=== PATIENT | male | born 1985 | race Caucasian/White ===

== ENCOUNTER 2018-07-25 16:26 | Emergency (ER) | payer BC ==
[~2018-07-25] VITALS: Ht 175.3 cm; Wt 85.8 kg
--- OUTSIDE RECORDS SUMMARY | 2018-07-25 16:29 | XMS REPORT | Continuity of Care Document ---
Author Author [facility] Interface Address Unknown Phone Unavailable Problems Problem Status Onset Date Classification Date Reported Comments Source Body mass index 25-29 - overweight 06/28/2018 Diagnosis 06/28/2018 [facility] Elevated blood-pressure reading without diagnosis of hypertension 06/28/2018 Diagnosis 06/28/2018 [facility] Immunization due 06/28/2018 Diagnosis 06/28/2018 [facility] Exposure to Influenzavirus 06/28/2018 Diagnosis 06/28/2018 [facility] Medications Medication Details Route Status Patient Instructions Ordering Provider Order Date Source Lidocaine Hydrochloride 20 MG/ML Mucous Membrane Topical Solution Lidocaine Viscous 2 % mucosal solution Take 15 mL every 3 hours by oral route. Swish gargle & spit. Active [facility] Oseltamivir 75 MG Oral Capsule [Tamiflu] Tamiflu 75 mg capsule Take 1 capsule twice a day by oral route for 5 days. Active [facility] benzonatate 100 MG Oral Capsule [Tessalon Perles] Tessalon Perles 100 mg capsule Take 1 capsule 3 times a day by oral route for 7 days. Active [facility] Allergies, Adverse Reactions, Alerts Substance Category Reaction Severity Reaction type Status Date Reported Comments Source Immunizations Immunization Date Given Site Status Last Updated Comments Source Tdap 03/27/2017 completed [facility] Results Order Name Results Value Reference Range Date Interpretation Comments Source Vital Signs Vital Sign Value Date Comments Source Diastolic (mm Hg) 84 06/27/2018 [facility] Height 70 06/27/2018 [facility] Systolic (mm Hg) 138 06/27/2018 [facility] Weight 175 06/27/2018 [facility] Encounters Location Location Details Encounter Type Encounter Number Reason For Visit Attending Provider ADM Date DC Date Status Source [place] - [facility] - [id number] David-C: [address] [place] [address], Ph. [id number] Chadd Loo 06/27/2018 [facility] Procedures Procedure Code Date Perfomer Comments Source
--- OUTSIDE RECORDS SUMMARY | 2018-07-25 16:29 | XMS REPORT | Encounter Summary ---
Author Organization Unknown Address [address] [place] [address] Phone [phone] Reason for Visit Medical Complaint Instructions 1. Exposure to Influenzavirus rapid flu (A+B) Tamiflu 75 mg capsule Tessalon Perles 100 mg capsule Lidocaine Viscous 2 % mucosal solution influenza (flu): care instructions 2. Immunization due 3. Elevated blood-pressure reading without diagnosis of hypertension elevated blood pressure: care instructions 4. Body mass index 25-29 - overweight learning about healthy weight Discussion Note Take charge of your health handout given and discussed. SE of medictions discussed and pt verbalized understanding. Plan of Care Patient Instructions How can you care for yourself at home? Get plenty of rest. Drink plenty of fluids, enough so that your urine is light yellow or clear like water. If you have kidney, heart, or liver disease and have to limit fluids, talk with your doctor before you increase the amount of fluids you drink. Take an owvl-tmo-mxzaanx pain medicine if needed, such as acetaminophen (Tylenol), ibuprofen (Advil, Motrin), or naproxen (Aleve), to relieve fever, headache, and muscle aches. Read and follow all instructions on the label. No one younger than 20 should take aspirin. It has been linked to Arielle syndrome, a serious illness. Do not smoke. Smoking can make the flu worse. If you need help quitting, talk to your doctor about stop-smoking programs and medicines. These can increase your chances of quitting for good. Breathe moist air from a hot shower or from a sink filled with hot water to help clear a stuffy nose. Before you use cough and cold medicines, check the label. These medicines may not be safe for young children or for people with certain health problems. If the skin around your nose and lips becomes sore, put some petroleum jelly on the area. To ease coughing: Drink fluids to soothe a scratchy throat. Suck on cough drops or plain hard candy. Take an qmpl-qaf-qywsjqf cough medicine that contains dextromethorphan to help you get some sleep. Read and follow all instructions on the label. Raise your head at night with an extra pillow. This may help you rest if coughing keeps you awake. Take any prescribed medicine exactly as directed. Call your doctor if you think you are having a problem with your medicine. To avoid spreading the flu Wash your hands regularly, and keep your hands away from your face. Stay home from school, work, and other public places until you are feeling better and your fever has been gone for at least 24 hours. The fever needs to have gone away on its own without the help of medicine. Ask people living with you to talk to their doctors about preventing the flu. They may get antiviral medicine to keep from getting the flu from you. To prevent the flu in the future, get a flu vaccine every fall. Encourage people living with you to get the vaccine. Cover your mouth when you cough or sneeze. When should you call for help? Call 911 anytime you think you may need emergency care. For example, call if: You have severe trouble breathing. Call your doctor now or seek immediate medical care if: You have new or worse trouble breathing. You seem to be getting much sicker. You feel very sleepy or confused. You have a new or higher fever. You get a new rash. Watch closely for changes in your health, and be sure to contact your doctor if: You begin to get better and then get worse. You are not getting better after 1 week. Reminders Provider Appointments None recorded. Lab Rapid Flu (A+B) 06/27/2018 [facility] Referral None recorded. Procedures None recorded. Surgeries None recorded. Imaging None recorded. Medications Name Start Date Lidocaine Viscous 2 % mucosal solution Take 15 mL every 3 hours by oral route. Swish gargle & spit. Tamiflu 75 mg capsule Take 1 capsule twice a day by oral route for 5 days. Tessalon Perles 100 mg capsule Take 1 capsule 3 times a day by oral route for 7 days. Medications Administered None recorded. Vitals Height Weight BMI Blood Pressure 5 ft 10 in 175 lbs 25.1 kg/m2 (1) 160/100 mm[Hg] (2) 138/84 mm[Hg] Lab Results None recorded. Allergies Code Code System Name Reaction Severity Status Onset NKDA Problems No Known Problems Procedures None recorded. Vaccine List Vaccine Type Tdap 03/27/2017 Social History Smoking Status Former Smoker Past Encounters 06/27/2018 Exposure to Influenzavirus; Immunization Due; Elevated Blood-pressure Reading without Diagnosis of Hypertension; Body Mass Index 25-29 - Overweight Chadd Loo LCSW-C: [address] [facility] [place] [address], Ph. History of Present Illness [id number] Reported By: Patient HPI: Quality: cannot identify. Duration: constant, 1 days. Severity: subjective temperature. Context: no tick/insect bites, no recent travel, no new medications, ill contacts. Associated Symptoms: no headache, no rash, no lethargy, fever/chills, muscle aches, tired (fatigue), cough Review of Systems:ROS as noted in the HPI Review of Systems Basic Reported By: Patient Physical Exam Adult Basic, Adult Male Complete Reported By: Patient Constitutional: General Appearance: healthy-appearing, well-nourished, well-developed. Level of Distress: mild distress, acutely ill. Ambulation: ambulating normally Psychiatric: Mental Status: active and alert. Orientation: to time, to place, to person Eyes: Lids and Conjunctivae: non-injected, no discharge, no pallor Mpo-Medb-Uvqnq-Throat: Ears: no lesions on external ear, no outer ear tenderness, EACs clear, TMs clear, TM mobility normal. Hearing: no hearing loss. Nose: no lesions on external nose, nares patent, no septal deviation, nasal passages clear, no sinus tenderness, no nasal discharge. Lips, Teeth, and Gums: no mouth or lip ulcers, no bleeding gums, normal dentition. Oropharynx: moist mucous membranes, no erythema, no exudates, tonsils not enlarged Neck: Lymph Nodes: no cervical LAD Lungs: Respiratory effort: no dyspnea, no tachypnea, no use of accessory muscles, no intercostal retractions. Auscultation: breath sounds normal, good air movement Cardiovascular: Heart Auscultation: RRR, no murmurs Neurologic: Gait and Station: normal gait Skin: Inspection and palpation: no rash; flushed cheeks
[2018-07-25] MEDS ORDERED: KETOROLAC TROMETHAMINE 30 MG/ML VIAL IV STA (16:49)
[2018-07-25] MEDS ORDERED: SODIUM CHLORIDE 0.9% 1000ML 1,000 ML IV SCH (17:00)
--- NOTE | 2018-07-25 18:11 | Diagnostic Imaging Report ---
EXAM: CT Abdomen and Pelvis WITHOUT contrast INDICATION: Right flank pain ^[id number] ^[id number] COMPARISON: None. TECHNIQUE: Abdomen and pelvis were scanned utilizing a multidetector helical scanner from the lung base to the pubic symphysis without administration of IV contrast. Absence of intravenous contrast decreases sensitivity for detection of focal lesions and vascular pathology. Coronal and sagittal reformations were obtained. Routine protocol was performed. IV CONTRAST: None. ORAL CONTRAST: Water RADIATION DOSE: Total DLP: 784.2 mGy*cm Estimated effective dose: (DLP x 0.015 x size factor) mSv COMPLICATIONS: None FINDINGS: LINES and TUBES: None. LOWER THORAX: Unremarkable HEPATOBILIARY: No focal hepatic lesions. No biliary ductal dilation. GALLBLADDER: No radio-opaque stones or sludge. No wall thickening. SPLEEN: No splenomegaly. PANCREAS: No focal masses or ductal dilatation. ADRENALS: No adrenal nodules KIDNEYS/URETERS: No cystic or solid mass lesions. A 4 mm calcified stone is seen in the proximal right ureter, 4.6 cm below the ureteropelvic junction, with associated mild to moderate hydronephrosis and dilatation of the proximal ureter. There is mild fat stranding surrounding the right kidney and proximal ureter suggestive of inflammatory changes but cannot exclude superimposed infection. There are additional 2 calcified stones in the right kidney in the mid pole (4 mm) and inferior pole (5 mm). A 3 mm calcified stone in the inferior pole of the left kidney is noted without hydronephrosis. The left ureter appears unremarkable. GI TRACT: No abnormal distention, wall thickening, or evidence of bowel obstruction. Appendix is normal. PELVIC ORGANS/BLADDER: Unremarkable. LYMPH NODES: No lymphadenopathy. VESSELS: Unremarkable. PERITONEUM / RETROPERITONEUM: No free air or fluid. BONES: Unremarkable. SOFT TISSUES: Unremarkable. IMPRESSION: 1. Mild to moderately obstructed proximal right ureteral stone (4 mm). Few additional up to 5 mm right renal stones. Perinephric fat stranding and surrounding the proximal ureter likely inflammatory changes but cannot exclude infection. 2. Single nonobstructing left nephrolithiasis. Signed by: Dr. Cortney Carroll M.D. on 07/25/2018 6:07 PM
[2018-07-25 18:29] VITALS: BP 160/90
[2018-07-25] MEDS ORDERED: ONDANSETRON HCL INJ 2MG/ML 2ML 2 MG/ML VIAL IV STA (18:43)
[2018-07-25] MEDS ORDERED: MORPHINE SULFATE INJ 4 MG/ML INJ 1ML IV PRN (18:45)
== END 2018-07-25 18:56 | disposition home or self-care (01) ==
LOC: FSED 16:26
DX: M54.5 Low back pain (principal); R10.11 Right upper quadrant pain; N20.0 Calculus of kidney
CPT/HCPCS: 74176; 80053; 85025; 99284; J1885; J2405